=== PATIENT | female | born 1960 | race Caucasian/White ===

== ENCOUNTER 2016-12-28 22:33 | Inpatient (IN) ==
[2016-12-28 23:27] LABS: Basophils % 0.2 %; Eosinophils # 0.2 K/mcL (0.0-0.6); Eosinophils % 1.3 %; Hematocrit 41.4 % (35.3-44.9); Hemoglobin 14.1 g/dL (11.5-15.4); Immature Granulocytes % 0.3 % (0-4); Lymphocytes # 1.6 K/mcL (0.6-4.6); Lymphocytes % 12.5 %; Mean Corpuscular HGB Conc 34.1 g/dL (31.6-35.5); Mean Corpuscular Hemoglobin 29.3 pg (28.0-33.3); Mean Corpuscular Volume 85.9 fL (83.0-100.0); Mean Platelet Volume 9.5 fL (9.4-12.4); Monocytes # 0.8 K/mcL (0.0-1.3); Monocytes % 6.4 %; Platelet Count 278 K/mcL (140-400); Red Blood Count 4.82 M/mcL (3.82-4.97); Red Cell Distribution Width 12.6 % (11.5-14.5); Segmented Neutrophils % 79.3 %
[2016-12-28 23:50] LABS: BUN/Creatinine Ratio 10 (6-26); Blood Urea Nitrogen 8 mg/dL (7-20); Calcium 9.5 mg/dL (8.6-10.8); Carbon Dioxide 23 mEq/L (19-29); Chloride 101 mEq/L (98-109); Glucose 187 mg/dL (70-99); Osmolality,Calculated 281 (280-300); Potassium 4.5 mEq/L (3.5-4.5); Sodium 134 mEq/L (136-145); eGFR For African Americans > 60 (> 60); eGFR For Non-African Americans > 60 (> 60)
[2016-12-29] MEDS ORDERED: Lidocaine/EPI 1:100k 1% 20 ML VIAL INFILT ONE (00:21)
[2016-12-29] MEDS ORDERED: 0.9 % Sodium Chloride 1,000 ML IVC ONE (00:21)
--- NOTE | 2016-12-29 00:25 | Emergency Department Note ---
Disposition Clinical Impression: Abscess of right buttock Cellulitis Qualifiers: Site of cellulitis: buttock Qualified Code(s): L03.317 - Cellulitis of buttock Disposition: Admitted As Inpatient Condition: Good Time of Disposition: 02:37 Skin/Abscess/FB HPI Chief complaint: ED Skin/Abscess/Foreign Body Stated complaint: Abscess Buttock Time Seen by Provider: 12/28/16 23:26 Source: patient Limitations: no limitations Nursing Notes Reviewed: Yes Vital Signs Reviewed: Yes HPI Narrative: 56-year-old female diabetic presents with worsening abscess to her right buttock. She states 2 days ago she was seen at [facility], he was placed on Keflex and Bactrim. He states The I&D was deferred at that time, she had plans to follow up with her primary care provider with whom she has an appointment scheduled and 2 days. However she states she started to have fever and worsening pain which prompted her visit to the emergency department. She states her diabetes A1c is controlled around 6%. She states her tetanus is up- to-date. She denies any bowel or bladder changes, drainage, or skin infections , as pain, shortness of breath, abdominal pain. Home Medications Medication Instructions Recorded Confirmed ALPRAZolam [Xanax 1 MG Tablet] 1 mg PO TID 05/22/15 12/26/16 Albuterol Sulfate [Proair Hfa] 2 puff IH BID 05/22/15 12/26/16 Aspirin [Adult Low Dose Aspirin EC] 81 mg PO DAILY 05/22/15 12/26/16 Atorvastatin Calcium [Lipitor] 80 mg PO HS 05/22/15 12/26/16 Cyclobenzaprine [Flexeril] 10 mg PO HS 05/22/15 12/26/16 Furosemide [Lasix] 40 mg PO DAILY 05/22/15 12/26/16 GlipiZIDE [Glipizide Xl] 10 mg PO BID 05/22/15 12/26/16 Metformin HCl [Fortamet] 1,000 mg PO BID 05/22/15 12/26/16 OxyCODONE ER (12 HR) [OxyCONTIN] 15 mg PO QID 05/22/15 12/26/16 Ranitidine HCl [Zantac 75] 150 mg PO BID 05/22/15 12/26/16 SitaGLIPtin [Januvia] 100 mg PO DAILY 05/22/15 12/26/16 Cholecalciferol (Vitamin D3) 400 unit PO DAILY 12/26/16 12/26/16 [Vitamin D] Mv-Mn/FA/A Lipoic Acid/Ubidec 1 each PO DAILY 12/26/16 12/26/16 [Diabetic Vitamin Capsule] Previous Rx's Medication Instructions Recorded Cephalexin [Keflex] 500 mg PO QID #40 capsule 12/26/16 Sulfamethoxazole/Trimeth DS 2 each PO BID #40 tablet 12/26/16 [Bactrim DS] Allergies Allergy/AdvReac Type Severity Reaction Status Date / Time acetaminophen Allergy Rash Verified 12/28/16 23:00 [From Darvocet-N] morphine Allergy Nausea Verified 12/28/16 23:00 pentazocine [From Talwin] Allergy Nausea Verified 12/28/16 23:00 propoxyphene [From Darvon] Allergy Nausea Verified 12/28/16 23:00 All systems ED: reviewed and negative except as stated. Constitutional: Reports: as per HPI. Denies: weakness Eyes: Denies: eye discharge ENT ED: Denies: throat pain Cardiovascular: Denies: palpitations Respiratory: Denies: dyspnea Gastrointestinal: Denies: abdominal pain, nausea, vomiting Genitourinary: Denies: dysuria Musculoskeletal: Denies: neck pain Integumentary: Denies: rash Neurological: Denies: headache Psychiatric: Denies: anxiety Endocrine: Denies: fatigue Hematological/Lymphatic: Denies: easy bleeding Allergic/Immunologic: Denies: facial swelling Past Medical History - Past Medical History Medical history: Reports: arthritis, COPD, diabetes, GERD, hyperlipidemia Surgical history: Reports: non-contributory Psychiatric history: Reports: anxiety BIOMEDICAL ENGINEERING SUPERVISOR history: Reports: no BIOMEDICAL ENGINEERING SUPERVISOR history, bilateral tubal ligation - Social History Smoking Status: Current every day smoker Smokeless Tobacco Status: No Alcohol use: Reports: none Drug use: Reports: none Physical Exam - General Limitations: no limitations General appearance: alert, in no apparent distress - Head Head exam: normocephalic - Eye Eye exam: Present: EOMI. Absent: conjunctival injection - ENT ENT exam: mucous membranes moist - Neck Neck exam: Present: full ROM - Chest Chest inspection: Present: normal inspection, symmetric chest wall rise - Respiratory Respiratory exam: Present: normal lung sounds bilaterally. Absent: respiratory distress - Cardiovascular Cardiovascular exam: Present: tachycardia - Abdominal Exam Abdominal exam: Present: soft, Non-Tender - Rectal Exam Accounting Supervisor present during exam: Yes (Lesley Barker RN) Rectal exam: Present: normal inspection, normal rectal tone, other. Absent: fecal impaction, mass, tenderness - Extremities Exam Extremities exam: Present: normal inspection, full ROM, normal capillary refill - Back Exam Back exam: Present: full ROM, other (abscess on right buttock) Back 1 view image: 1 - erythema consistent with cellulitis 2 - 4x3cm indurated slighly fluctuant abscess with no skin breakdown, no active drainage; no enedina-rectal involvement - Neurological Exam Neurological exam: Present: alert, oriented X3 - Psychiatric Psychiatric exam: Present: normal affect, normal mood - Skin Skin exam: Present: warm, dry, intact, normal color. Absent: rash, cyanosis, diaphoresis Course Course Narrative: 56-year-old female diabetic presents with worsening abscess infection on her right buttock. She has been on by mouth Keflex and Bactrim for approximately 2 days. She developed fevers and chills today. She is no improvement of her pain. At triage she was tachycardic, and febrile. Protocol order show that she does have a elevated white blood cell count. Lactic acid and blood cultures have been ordered. On examination, she does have an area of cellulitis, and a nontoxic abscess. There does not appear to be any perirectal involvement. The are unremarkable, with no palpable abscess or mass or excessive tenderness. Patient has SIRS criteria, is failing outpatient treatment, and has diabetes. We will plan for admission. Will attempt I&D. Discussed with Dr. Donovan who agreed for admission. - Reevaluation(s) Reevaluation #1: Pt was given a dose of ativan for her anxiety. I&D was consented for, performed. I was able to get approximately 15 mL of purulent material with the drainage. She has received fluids and her heart rate has improved. Other than her abscess she denies any concerns. Blood cultures were drawn and patient has received IV vancomycin. Pt discussed with and accepted by hospitalist Dr. Song. Time: 02:34 Vital Signs Temperature 100.7 F H 12/28/16 22:57 Pulse Rate 111 12/28/16 22:57 Respiratory Rate 20 12/28/16 22:57 Blood Pressure 163/82 12/28/16 22:57 O2 Sat by Pulse Oximetry 96 12/28/16 22:57 Temperature 100.7 F H 12/28/16 22:57 Pulse Rate 82 12/29/16 02:24 Respiratory Rate 16 12/29/16 02:24 Blood Pressure 137/69 12/29/16 02:24 O2 Sat by Pulse Oximetry 97 12/29/16 02:24 Oxygen Delivery Oxygen Delivery Room Air Procedures - Abscess I/D Consent obtained: verbal consent Site: back (buttock) Side (if applicable): left Local Anesthetic: lidocaine 1%, with epi Technique: incised with #11 blade Amount of fluid: 15 Irrigation: Yes Packing used?: none Skin/Abscess/Foreign Body - MDM Narrative Medical decision making narrative: Patient is a 56-year-old diabetic that presented with a cellulitic abscess. She was initially seen 2 days ago at an outside facility and was placed on Keflex and Bactrim which she has been compliant with. She presented today after developing fevers and chills at home. At triage she was febrile and tachycardic. Workup also showed increase in white blood cell count of neutrophils. She does have a history of diabetes, although states that it is well-controlled. Patient was discussed with Dr. Donovna, who agreed with workup and admission. incision and Drainage was performed which did drain purulent material. Cultures were obtained. Patient did feel relief afterwards. She denied any abdominal pain, bowel or bladder changes. On exam she is alert and oriented 3, did not look toxic. However Since patient has been on antibiotics for 2 days with no improvement, history of diabetes, felt that she warranted admission. Patient was discussed with hospitalist Dr. Song who accepted the patient. Laboratory Tests 12/28/16 12/28/16 12/28/16 23:13 23:13 23:13 WBC 12.7 H RBC 4.82 Hgb 14.1 Hct 41.4 MCV 85.9 MCH 29.3 MCHC 34.1 RDW 12.6 Plt Count 278 MPV 9.5 Immature Gran % 0.3 Seg Neutrophils % 79.3 Lymphocytes % 12.5 Monocytes % 6.4 Eosinophils % 1.3 Basophils % 0.2 Neutrophils # 10.0 H Lymphocytes # 1.6 Monocytes # 0.8 Eosinophils # 0.2 Basophils # 0.0 Sodium 134 L Potassium 4.5 Chloride 101 Carbon Dioxide 23 BUN 8 Creatinine 0.77 Est GFR ( Amer) > 60 Est GFR (Non-Af Amer) > 60 BUN/Creatinine Ratio 10 Glucose 187 H Calculated Osmolality 281 Lactic Acid 1.7 Calcium 9.5 Urine Color Urine Clarity Urine pH Ur Specific [place] Urine Protein Urine Glucose (UA) Urine Ketones Urine Blood Urine Nitrite Urine Bilirubin Urine Urobilinogen Ur Leukocyte Esterase Urine Microscopic RBC Urine Microscopic WBC Ur Squamous Epith Cells Urine Bacteria Hyaline Casts Ur Culture Indicated? 12/29/16 00:44 WBC RBC Hgb Hct MCV MCH MCHC RDW Plt Count MPV Immature Gran % Seg Neutrophils % Lymphocytes % Monocytes % Eosinophils % Basophils % Neutrophils # Lymphocytes # Monocytes # Eosinophils # Basophils # Sodium Potassium Chloride Carbon Dioxide BUN Creatinine Est GFR ( Amer) Est GFR (Non-Af Amer) BUN/Creatinine Ratio Glucose Calculated Osmolality Lactic Acid Calcium Urine Color Yellow Urine Clarity Clear Urine pH 5.5 Ur Specific [place] 1.019 Urine Protein Negative Urine Glucose (UA) 100 H Urine Ketones Negative Urine Blood Negative Urine Nitrite Negative Urine Bilirubin Negative Urine Urobilinogen Normal Ur Leukocyte Esterase Small H Urine Microscopic RBC 0-3 Urine Microscopic WBC 0-3 Ur Squamous Epith Cells Many H Urine Bacteria None Seen Hyaline Casts None Seen Ur Culture Indicated? YES A - Lab Data Lab results reviewed: Yes I reviewed the patient's lab results. Result diagrams: 12/28/16 23:13 12/28/16 23:13 Lab Results 12/28/16 12/28/16 12/28/16 Range/Units 23:13 23:13 23:13 WBC 12.7 H (4.3-11.1) K/mcL RBC 4.82 (3.82-4.97) M/mcL Hgb 14.1 (11.5-15.4) g/dL Hct 41.4 (35.3-44.9) % MCV 85.9 (83.0-100.0) fL MCH 29.3 (28.0-33.3) pg MCHC 34.1 (31.6-35.5) g/dL RDW 12.6 (11.5-14.5) % Plt Count 278 (140-400) K/mcL MPV 9.5 (9.4-12.4) fL Immature Gran % 0.3 (0-4) % Seg Neutrophils % 79.3 % Lymphocytes % 12.5 % Monocytes % 6.4 % Eosinophils % 1.3 % Basophils % 0.2 % Neutrophils # 10.0 H (1.6-8.9) K/mcL Lymphocytes # 1.6 (0.6-4.6) K/mcL Monocytes # 0.8 (0.0-1.3) K/mcL Eosinophils # 0.2 (0.0-0.6) K/mcL Basophils # 0.0 (0.0-0.2) K/mcL Sodium 134 L (136-145) mEq/L Potassium 4.5 (3.5-4.5) mEq/L Chloride 101 (98-109) mEq/L Carbon Dioxide 23 (19-29) mEq/L BUN 8 (7-20) mg/dL Creatinine 0.77 (0.57-1.11) mg/dL Est GFR ( Amer) > 60 (> 60) Est GFR (Non-Af Amer) > 60 (> 60) BUN/Creatinine Ratio 10 (6-26) Glucose 187 H (70-99) mg/dL Calculated Osmolality 281 (280-300) Lactic Acid 1.7 (0.5-2.2) mmol/L Calcium 9.5 (8.6-10.8) mg/dL Urine Color (Yellow) Urine Clarity (Clear) Urine pH (5.0-8.0) pH Units Ur Specific [place] (1.010-1.025) Urine Protein (Neg-Trace) mg/dL Urine Glucose (UA) (Normal) mg/dL Urine Ketones (Negative) mg/dL Urine Blood (Negative) Urine Nitrite (Negative) Urine Bilirubin (Negative) Urine Urobilinogen (Normal) mg/dL Ur Leukocyte Esterase (Negative) Urine Microscopic RBC (0-3) per hpf Urine Microscopic WBC (0-3) per hpf Ur Squamous Epith Cells (None-Few) per lpf Urine Bacteria (None-Few) per hpf Hyaline Casts (None-Few) per lpf Ur Culture Indicated? (NO) 12/29/16 Range/Units 00:44 WBC (4.3-11.1) K/mcL RBC (3.82-4.97) M/mcL Hgb (11.5-15.4) g/dL Hct (35.3-44.9) % MCV (83.0-100.0) fL MCH (28.0-33.3) pg MCHC (31.6-35.5) g/dL RDW (11.5-14.5) % Plt Count (140-400) K/mcL MPV (9.4-12.4) fL Immature Gran % (0-4) % Seg Neutrophils % % Lymphocytes % % Monocytes % % Eosinophils % % Basophils % % Neutrophils # (1.6-8.9) K/mcL Lymphocytes # (0.6-4.6) K/mcL Monocytes # (0.0-1.3) K/mcL Eosinophils # (0.0-0.6) K/mcL Basophils # (0.0-0.2) K/mcL Sodium (136-145) mEq/L Potassium (3.5-4.5) mEq/L Chloride (98-109) mEq/L Carbon Dioxide (19-29) mEq/L BUN (7-20) mg/dL Creatinine (0.57-1.11) mg/dL Est GFR ( Amer) (> 60) Est GFR (Non-Af Amer) (> 60) BUN/Creatinine Ratio (6-26) Glucose (70-99) mg/dL Calculated Osmolality (280-300) Lactic Acid (0.5-2.2) mmol/L Calcium (8.6-10.8) mg/dL Urine Color Yellow (Yellow) Urine Clarity Clear (Clear) Urine pH 5.5 (5.0-8.0) pH Units Ur Specific [place] 1.019 (1.010-1.025) Urine Protein Negative (Neg-Trace) mg/dL Urine Glucose (UA) 100 H (Normal) mg/dL Urine Ketones Negative (Negative) mg/dL Urine Blood Negative (Negative) Urine Nitrite Negative (Negative) Urine Bilirubin Negative (Negative) Urine Urobilinogen Normal (Normal) mg/dL Ur Leukocyte Esterase Small H (Negative) Urine Microscopic RBC 0-3 (0-3) per hpf Urine Microscopic WBC 0-3 (0-3) per hpf Ur Squamous Epith Cells Many H (None-Few) per lpf Urine Bacteria None Seen (None-Few) per hpf Hyaline Casts None Seen (None-Few) per lpf Ur Culture Indicated? YES A (NO)
[2016-12-29] MEDS ORDERED: Vancomycin 1,000 MG in D5% in Water 250 ML IVPB ONE (00:37)
[2016-12-29 00:52] LABS: Bilirubin,Urine Negative (Negative); Blood,Urine Negative (Negative); Clarity,Urine Clear (Clear); Color,Urine Yellow (Yellow); Glucose,Urine (UA) 100 mg/dL (Normal); Ketones,Urine Negative (Negative); Leukocyte Esterase,Urine Small (Negative); Nitrite,Urine Negative (Negative); PH,Urine 5.5 pH Units (5.0-8.0); Protein,Urine Negative (Neg-Trace); Specific Gravity,Urine 1.019 (1.010-1.025); Urobilinogen,Urine Normal (Normal)
[2016-12-29 00:55] LABS: Bacteria,Urine None Seen per hpf (None-Few); Hyaline Casts,Urine None Seen per lpf (None-Few); RBC,Urine 0-3 per hpf (0-3); Squamous Epithelial Cell,Urine Many per lpf (None-Few); WBC,Urine 0-3 per hpf (0-3)
[2016-12-29] MEDS ORDERED: *HR* LORazepam 2 MG/ML VIAL IVP ONE (01:09)
--- NOTE | 2016-12-29 04:22 | Internal Med History&Physical ---
Date of Encounter: 12/29/16 Time of Encounter: 04:21 Internal Medicine - H&P: HPI Chief complaint: gluteal abscess History of present illness: Ms. Valenzuela is a 56 year old female with history of diabetes mellitus type II on oral hypoglycemic's, hypertension, dyslipidemia presents to the emergency room today with the main complain of left gluteal abscesses. Patient 1st noted this abscess 2 days ago, went to outside emergency room and received a prescription of Bactrim and Keflex which she has been compliant with. However she has not noticed improvement in her symptoms and started having fevers and chills up 100.7 on arrival to our emergency room. Patient had incision and drainage of the abscess in the emergency room with retrieval of purulent drainage sent for culture. Patient denies prior history of mrsa infection. Mentioned that her diabetes is well-controlled last A1C around 6.5. Past Med Surg Social Fam HX - Past Medical History Medical history: arthritis, COPD, diabetes, GERD, hyperlipidemia Psychiatric history: anxiety - Past Surgical History Surgical History: non-contributory - Social History Smoking Status: Current every day smoker Smokeless Tobacco Status: No Alcohol use: none Drug use: none Internal Medicine - H&P: Meds ALPRAZolam [Xanax 1 MG Tablet] 1 mg PO TID 05/22/15 [History] Albuterol Sulfate [Proair Hfa] 2 puff IH BID 05/22/15 [History] Aspirin [Adult Low Dose Aspirin EC] 81 mg PO DAILY 05/22/15 [History] Atorvastatin Calcium [Lipitor] 80 mg PO HS 05/22/15 [History] Cyclobenzaprine [Flexeril] 10 mg PO HS 05/22/15 [History] Furosemide [Lasix] 40 mg PO DAILY 05/22/15 [History] GlipiZIDE [Glipizide Xl] 10 mg PO BID 05/22/15 [History] Metformin HCl [Fortamet] 1,000 mg PO BID 05/22/15 [History] OxyCODONE ER (12 HR) [OxyCONTIN] 15 mg PO QID 05/22/15 [History] Ranitidine HCl [Zantac 75] 150 mg PO BID 05/22/15 [History] SitaGLIPtin [Januvia] 100 mg PO DAILY 05/22/15 [History] Cephalexin [Keflex] 500 mg PO QID #40 capsule 12/26/16 [Rx] Cholecalciferol (Vitamin D3) [Vitamin D] 400 unit PO DAILY 12/26/16 [History] Mv-Mn/FA/A Lipoic Acid/Ubidec [Diabetic Vitamin Capsule] 1 each PO DAILY [History] Sulfamethoxazole/Trimeth DS [Bactrim DS] 2 each PO BID #40 tablet 12/26/16 [Rx] 3 Allergy/AdvReac Type Severity Reaction Status Date / Time acetaminophen Allergy Rash Verified 12/28/16 23:00 [From Darvocet-N] morphine Allergy Nausea Verified 12/28/16 23:00 pentazocine [From Talwin] Allergy Nausea Verified 12/28/16 23:00 propoxyphene [From Darvon] Allergy Nausea Verified 12/28/16 23:00 All Systems PM: A 10-system review of systems was performed and is negative for pertinent findings except as documented above in the HPI. Review of systems: 10 point review of systems is negative except for HPI - Constitutional Vitals: Temp Pulse Resp BP Pulse Ox 99.9 F H 99 14 128/70 94 12/29/16 04:01 12/29/16 04:01 12/29/16 04:01 12/29/16 04:01 12/29/16 04:01 Exam: Gen.: patient is alert oriented times 3 not in distress cardiac: Normal S1, S2, no additional sounds or murmurs chest: Clear to auscultation Abdomen: Soft, non tender, nondistended, No rebound lower extremity Lax calf muscles no swelling Genitourinary: left gluteal abscess Neuro: no focal deficits Internal Med - H&P Results - Labs CBC & Chem 7: 12/28/16 23:13 12/28/16 23:13
[2016-12-29] MEDS ORDERED: Vancomycin 1,750 MG in D5% in Water 250 ML IVPB SCH (05:00)
[2016-12-29] MEDS: Famotidine 20 MG TABLET PO SCH ×2 (08:29→21:41)
[2016-12-29] MEDS: *HR* Heparin 5,000 UNIT/ML VIAL SQ SCH ×2 (08:29→14:32)
[2016-12-29] MEDS: Aspirin Enteric Coated 81 MG Tablet PO SCH (08:29)
[2016-12-29] MEDS: Piperacillin/Tazobactam 3.375 GM in D5% in Water (Mini-Bag+) 100 ML IVPB SCH ×2 (08:29→16:34)
[2016-12-29] MEDS: Insulin LISPRO 300 UNITS/3 ML VIAL SQ SCH ×4 (08:30→22:24)
[2016-12-29] MEDS ORDERED: Ondansetron 4 MG/2 ML VIAL IVP PRN (09:32)
--- NOTE | 2016-12-29 09:39 | Internal Med Progress Note ---
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 Started on vancomycin and Zosyn and wound culture pending. Patient has diabetes hypertension dyslipidemia. She is restarted on diabetic diet, cultures will be followed, Dilaudid and Tylenol as needed for pain management, when necessary Zofran and Colace are added. - Constitutional Vitals: Temp Pulse Resp BP Pulse Ox 99.9 F H 99 14 128/70 94 12/29/16 04:01 12/29/16 04:01 12/29/16 04:01 12/29/16 04:01 12/29/16 04:01 General appearance: Present: A&O X 3, pleasant, no acute distress, answers questions appropriately - Head Head exam: Present: atraumatic, normocephalic - Eye Eye exam: Present: PERRL, conjuntiva pink, sclera anicteric Pupils: Present: PERRL - Neck Neck exam general surgery: Present: supple, trachea midline. Absent: lymphadenopathy - Respiratory Respiratory exam: Present: CTAB. Absent: accessory muscle use, rales, rhonchi, wheezes - Cardiovascular Cardiovascular exam: Present: RRR, +S1, +S2. Absent: diastolic murmur, gallop, rubs, systolic murmur - GI/Abdominal GI/Abdominal exam: Present: normal bowel sounds, soft, no peritoneal signs. Absent: distended, tenderness - Extremities Exam Extremities exam: Present: warm, radial pulses palpable and symmetrical. Absent : calf tenderness, cyanotic, pedal edema - Neurological Exam Neurological exam: Present: CN II-XII intact, oriented X3, no focal deficits. Absent: pronater drift, facial droop, speech deficit - Skin Skin exam: Present: dry, intact Internal Medicine: Result - Labs CBC & Chem 7: 12/28/16 23:13 12/28/16 23:13 - VTE Documentation of Mechanical Device: Intermittent pneumatic compression device Consult Discharge Plan - Plan Referrals: Raphael Frazier DO [Primary Care Provider] -
[2016-12-29] MEDS: *HR* HYDROmorphone (PF) 1 MG/ML SYRINGE IVP PRN ×2 (11:53→21:40)
[2016-12-29] MEDS: Vancomycin 1,750 MG in D5% in Water 500 ML IVPB SCH (12:49)
[2016-12-29] MEDS ORDERED: Vancomycin 1,250 MG in D5% in Water 250 ML IVPB SCH (13:00)
[2016-12-30] MEDS: Piperacillin/Tazobactam 3.375 GM in D5% in Water (Mini-Bag+) 100 ML IVPB SCH ×3 (00:57→18:52)
[2016-12-30] MEDS: Vancomycin 1,750 MG in D5% in Water 500 ML IVPB SCH ×2 (00:58→13:50)
[2016-12-30] MEDS: *HR* Heparin 5,000 UNIT/ML VIAL SQ SCH ×4 (01:14→20:18)
[2016-12-30] MEDS: *HR* HYDROmorphone (PF) 1 MG/ML SYRINGE IVP PRN ×3 (05:52→20:17)
[2016-12-30] MEDS: Insulin LISPRO 300 UNITS/3 ML VIAL SQ SCH ×4 (08:01→22:40)
[2016-12-30] MEDS: Famotidine 20 MG TABLET PO SCH ×2 (08:02→20:19)
[2016-12-30] MEDS: Aspirin Enteric Coated 81 MG Tablet PO SCH (08:02)
--- NOTE | 2016-12-30 12:26 | Internal Med Progress Note ---
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 Started on vancomycin and Zosyn and wound culture pending. Patient has diabetes hypertension dyslipidemia. She is restarted on diabetic diet, cultures will be followed, Dilaudid and Tylenol as needed for pain management, when necessary Zofran and Colace are added. Awaiting wound culture so that he can customize antibiotic consult wound care - Constitutional Vitals: Temp Pulse Resp BP Pulse Ox 98.6 F 76 16 132/81 99 12/30/16 10:54 12/30/16 10:54 12/30/16 10:54 12/30/16 10:54 12/30/16 10:54 General appearance: Present: A&O X 3, pleasant, no acute distress, answers questions appropriately - Head Head exam: Present: atraumatic, normocephalic - Eye Eye exam: Present: PERRL, conjuntiva pink, sclera anicteric Pupils: Present: PERRL - Neck Neck exam general surgery: Present: supple, trachea midline. Absent: lymphadenopathy - Respiratory Respiratory exam: Present: CTAB. Absent: accessory muscle use, rales, rhonchi, wheezes - Cardiovascular Cardiovascular exam: Present: RRR, +S1, +S2. Absent: diastolic murmur, gallop, rubs, systolic murmur - GI/Abdominal GI/Abdominal exam: Present: normal bowel sounds, soft, no peritoneal signs. Absent: distended, tenderness - Extremities Exam Extremities exam: Present: warm, radial pulses palpable and symmetrical. Absent : calf tenderness, cyanotic, pedal edema - Neurological Exam Neurological exam: Present: CN II-XII intact, oriented X3, no focal deficits. Absent: pronater drift, facial droop, speech deficit - Skin Skin exam: Present: dry, intact Internal Medicine: Result - Labs CBC & Chem 7: 12/28/16 23:13 12/28/16 23:13 - VTE Documentation of Mechanical Device: Intermittent pneumatic compression device Consult Discharge Plan - Plan Referrals: Raphael Frazier DO [Primary Care Provider] -
[2016-12-30] MEDS: ALPRAZolam 0.5 MG TABLET PO PRN ×2 (13:51→20:19)
[2016-12-31 03:25] LABS: Basophils % 0.7 %; Eosinophils # 0.2 K/mcL (0.0-0.6); Hematocrit 33.6 % (35.3-44.9); Immature Granulocytes % 0.2 % (0-4); Immature Platelets 2.3 % (1.1-6.1); Lymphocytes # 1.5 K/mcL (0.6-4.6); Lymphocytes % 34.4 %; Mean Corpuscular HGB Conc 33.9 g/dL (31.6-35.5); Mean Corpuscular Hemoglobin 29.2 pg (28.0-33.3); Mean Corpuscular Volume 85.9 fL (83.0-100.0); Mean Platelet Volume 9.6 fL (9.4-12.4); Monocytes # 0.4 K/mcL (0.0-1.3); Monocytes % 9.4 %; Neutrophils # 2.2 K/mcL (1.6-8.9); Platelet Count 230 K/mcL (140-400); Red Blood Count 3.91 M/mcL (3.82-4.97); Red Cell Distribution Width 12.4 % (11.5-14.5); Segmented Neutrophils % 50.3 %
[2016-12-31 03:40] LABS: Alanine Aminotransferase 20 Units/L (0-55); Albumin 2.7 g/dL (3.5-5.0); Albumin/Globulin Ratio 0.9 (1.1-2.2); Alkaline Phosphatase 75 Units/L (38-126); Aspartate Amino Transferase 14 Units/L (5-34); BUN/Creatinine Ratio 20 (6-26); Bilirubin,Total 0.7 mg/dL (0.2-1.2); Blood Urea Nitrogen 14 mg/dL (7-20); Calcium 8.6 mg/dL (8.6-10.8); Carbon Dioxide 22 mEq/L (19-29); Chloride 108 mEq/L (98-109); Glucose 246 mg/dL (70-99); Osmolality,Calculated 293 (280-300); Sodium 137 mEq/L (136-145); Total Protein 5.7 g/dL (6.0-8.3); eGFR For African Americans > 60 (> 60); eGFR For Non-African Americans > 60 (> 60)
[2016-12-31 03:48] LABS: Hemoglobin 11.4 g/dL (11.5-15.4)
[2016-12-31] MEDS: Piperacillin/Tazobactam 3.375 GM in D5% in Water (Mini-Bag+) 100 ML IVPB SCH ×3 (04:25→15:56)
[2016-12-31] MEDS: Vancomycin 1,750 MG in D5% in Water 500 ML IVPB SCH ×2 (04:33→13:48)
[2016-12-31] MEDS: *HR* HYDROmorphone (PF) 1 MG/ML SYRINGE IVP PRN ×2 (04:35→10:37)
[2016-12-31] MEDS: Aspirin Enteric Coated 81 MG Tablet PO SCH (08:19)
[2016-12-31] MEDS: *HR* Heparin 5,000 UNIT/ML VIAL SQ SCH ×2 (08:20→13:47)
[2016-12-31] MEDS: Famotidine 20 MG TABLET PO SCH (08:20)
[2016-12-31] MEDS: Insulin LISPRO 300 UNITS/3 ML VIAL SQ SCH ×2 (08:21→11:22)
[2016-12-31] MEDS ORDERED: D5% in Water 1,000 ML IVC PRN (11:38)
[2016-12-31] MEDS ORDERED: Dextrose Gel 15 GM PO PRN ×2 (11:38)
[2016-12-31] MEDS ORDERED: *HR* Dextrose 50 % in Water (Syg) 50 ML SYRINGE IVP PRN (11:38)
[2016-12-31 14:46] VITALS: BP 152/71
--- NOTE | 2016-12-31 15:38 | Discharge Summary ---
Date of Encounter: 12/31/16 Time of Encounter: 15:36 - Discharge Diagnosis (1) Abscess of right buttock Priority: Primary Status: Acute (2) Cellulitis Priority: Secondary Status: Acute Qualifiers: Site of cellulitis: buttock Qualified Code(s): L03.317 - Cellulitis of buttock (3) Diabetes Priority: Secondary Status: Acute Qualifiers: Diabetes mellitus type: type 2 Diabetes mellitus complication detail: with other skin complication Diabetes mellitus halfway insulin use: without intermediate teacher use Qualified Code(s): E11.628 - Type 2 diabetes mellitus with other skin complications (4) Hypertension Priority: Secondary Status: Acute Qualifiers: Hypertension type: essential hypertension Qualified Code(s): I10 - Essential (primary) hypertension (5) Dyslipidemia Priority: Secondary Status: Acute (6) Pain management Priority: Secondary Status: Acute - Discharge Medications Home Medications: ALPRAZolam [Xanax 1 MG Tablet] 1 mg PO TID 05/22/15 [History] Albuterol Sulfate [Proair Hfa] 2 puff IH BID 05/22/15 [History] Aspirin [Adult Low Dose Aspirin EC] 81 mg PO DAILY 05/22/15 [History] Atorvastatin Calcium [Lipitor] 80 mg PO HS 05/22/15 [History] Cyclobenzaprine [Flexeril] 10 mg PO HS 05/22/15 [History] Furosemide [Lasix] 40 mg PO BID 05/22/15 [History] GlipiZIDE [Glipizide Xl] 10 mg PO BID 05/22/15 [History] Metformin HCl [Fortamet] 1,000 mg PO QAM 05/22/15 [History] OxyCODONE ER (12 HR) [OxyCONTIN] 15 mg PO QID 05/22/15 [History] Ranitidine HCl [Zantac 75] 150 mg PO BID 05/22/15 [History] SitaGLIPtin [Januvia] 100 mg PO DAILY 05/22/15 [History] Cephalexin [Keflex] 500 mg PO QID #40 capsule 12/26/16 [Rx] Cholecalciferol (Vitamin D3) [Vitamin D3] 400 unit PO DAILY 12/26/16 [History] Mv-Mn/FA/A Lipoic Acid/Ubidec [Diabetic Vitamin Capsule] 1 tab PO DAILY [History] Sulfamethoxazole/Trimeth DS [Bactrim Ds] 2 tab PO BID 12/29/16 [History] metFORMIN [Glucophage] 500 mg PO HS 12/29/16 [History] Allergies/Adverse Reactions: 3 Allergy/AdvReac Type Severity Reaction Status Date / Time acetaminophen Allergy Rash Verified 12/28/16 23:00 [From Darvocet-N] morphine Allergy Nausea Verified 12/28/16 23:00 pentazocine [From Talwin] Allergy Nausea Verified 12/28/16 23:00 propoxyphene [From Darvon] Allergy Nausea Verified 12/28/16 23:00 Date of admission: 12/29/16 04:07 Primary care physician: Romario Herrera Consults: 12/30/16 12:27 Consult to Wound Care [CONS] Routine Reason for Consult: Gluteal wound status post I&D Time Notified: 12:27 Call Completed: Yes Discharging clinician: Jomar Ramires Anticipated date of discharge: 12/31/16 - Patient Status Disposition: Home, Self-Care Condition: Good Overall status at discharge: patient is progressing back to baseline - Discharge Instructions Follow Up With: Raphael Frazier DO [Primary Care Provider] - - Diet and Activity Activity: resume usual activities as tolerated Diet: advance to your usual diet, diabetic diet, low fat, low cholesterol, low salt diet (Patient is advised to keep the area clean with soap and water daily and keep it dry and apply dressing as instructed by wound care.) Hospital course: Ms. Valenzuela is a 56 year old female . She is admitted for right gluteal abscess status post I&D in the ER. Started on vancomycin and Zosyn . Her wound culture is negative to this date. Patient has diabetes hypertension dyslipidemia. Her wound is examined this morning. Surrounding cellulitis has resolved and no discharge noted. Daily dressing is recommended which will be the primary treatment. Keflex and Bactrim would provide adequate coverage against possible gram-positive or MRSA. She is advised to see her family doctor by the end of the week or early next week and let him take the look of her wound or return to ER if symptoms develop or worsen especially any wound discharge or fever or redness. Apparently she took antibiotics including Bactrim and Keflex for 2 days before coming to hospital. She reports that her cellulitis started getting better but wound was quite painful as she could not set. After I&D done in ER the discomfort resolved.. S - Time Spent with Patient Total time spent providing and/or coordinating discharge services: Greater than 30 minutes - Constitutional Vitals: Temp Pulse Resp BP Pulse Ox 98.9 F 83 16 152/71 96 12/31/16 14:43 12/31/16 14:43 12/31/16 14:43 12/31/16 14:43 12/31/16 14:43 General appearance: Present: A&O X 3, pleasant, no acute distress, answers questions appropriately - Head Head exam: Present: atraumatic, normocephalic - Eye Eye exam: Present: PERRL, conjuntiva pink, sclera anicteric Pupils: Present: PERRL - Neck Neck exam general surgery: Present: supple, trachea midline. Absent: lymphadenopathy - Respiratory Respiratory exam: Present: CTAB. Absent: accessory muscle use, rales, rhonchi, wheezes - Cardiovascular Cardiovascular exam: Present: RRR, +S1, +S2. Absent: diastolic murmur, gallop, rubs, systolic murmur - GI/Abdominal GI/Abdominal exam: Present: normal bowel sounds, soft, no peritoneal signs. Absent: distended, tenderness - Extremities Exam Extremities exam: Present: warm, radial pulses palpable and symmetrical. Absent : calf tenderness, cyanotic, pedal edema Additional comments: Right buttock area examined and presence of RN. Less than a centimeter incision noted which is open however no discharge where a small surrounding indurated area but no redness or tenderness. Patient is advised to keep the area clean with soap and water daily and keep it dry and apply dressing as instructed by wound care. - Neurological Exam Neurological exam: Present: CN II-XII intact, oriented X3, no focal deficits. Absent: pronater drift, facial droop, speech deficit - Skin Skin exam: Present: dry, intact - VTE Documentation of Mechanical Device: Intermittent pneumatic compression device
[2016-12-31] MEDS ORDERED: Insulin LISPRO 300 UNITS/3 ML VIAL SQ SCH ×2 (16:30→21:00)
[2016-12-31] MEDS ORDERED: Aminoglycoside Consult 1 EACH MC ONE (16:47)
[2016-12-31] MEDS ORDERED: Insulin DETEMIR 100 UNIT/ML X5UNITS SQ SCH (21:00)
== END 2016-12-31 16:48 | disposition home or self-care (01) | DRG 383 ==
LOC: EMEROO 22:33 → 3ANU 22:33
PROVIDERS: ADMIT Hospitalist; ATTEND Internal Medicine